=== PATIENT | male | born 1950 | race Caucasian/White ===

== ENCOUNTER → 2017-03-01 | Outpatient (CLI) | payer MEDICARE, BC ==
--- NOTE | 2017-03-01 14:15 | MRI ---
EXAM DESCRIPTION: Lumbar Spine w/o Contrast CLINICAL HISTORY: RADICULOPATHY COMPARISON: None Available. TECHNIQUE: MRI of the lumbar spine is performed according to our usual protocol with axial and sagittal multi sequence imaging. FINDINGS: There is good alignment of the lumbar spine. There is no vertebral pathology. L1:2: the disc is well hydrated. There is no loss of height. There is no bulging. The facets are unremarkable with no significant hypertrophy. There is no stenosis or impingement. L2-3: Mild narrowing and desiccation the discs. Broad annular bulging. Posterior midline annular tear. Early hypertrophic facet arthropathy right greater than left. No stenosis or impingement. L3-4: Moderate desiccation and narrowing of the disc with a broad 2 to 3 mm disc bulge. Annular tear is present posteriorly. There is moderate hypertrophic facet arthropathy. There is no stenosis or impingement. L4-5: Marked narrowing of the discs. Advanced degenerative endplate changes. Broad 2 mm disc osteophyte complex somewhat exaggerated to the left. Mild right moderate left hypertrophic facet arthropathy. No stenosis or impingement. L5-S1: L5 is a transitional vertebral segment and L5-S1 disc is a rudimentary disc level. Facets unremarkable. No stenosis or impingement. IMPRESSION: Multilevel lumbar spondylosis most prominent L3-4 and L4-5 but with no stenosis or impingement at any level. Electronically signed by: Urbano Hi MD 03/01/2017 2:14 PM CDT
== END | disposition home or self-care (01) ==
LOC: MRI 09:03
PROVIDERS: ATTEND Nurse Practitioner Family
DX: M54.16 Radiculopathy, lumbar region (principal)

== ENCOUNTER → 2018-12-06 | Outpatient (CLI) | payer MEDICARE, BC ==
--- NOTE | 2018-12-06 15:20 | US ---
EXAM DESCRIPTION: Aorta: Ultrasound. CLINICAL HISTORY: SCREENING FOR ANEURYSM COMPARISON: MRI lumbar spine 03/01/2017. TECHNIQUE: Transcutaneous scanning: Two-dimensional and Doppler modes. FINDINGS: Abdominal aorta diameter - Proximal: 2.8 x 2.3 cm. Mid: 2.7 x 1.9 cm. Distal: 3.1 x 1.9 cm. Common Iliac diameter - Right: 14 mm. Left: 15 mm. Other: Atherosclerotic changes in the wall of the aorta.. IMPRESSION: 1.3.1 cm distal abdominal aortic aneurysm. Recommend follow-up every 3 years. Reference: J Am Nirmala Radiol 2013;10:789-794. 2. Borderline aneurysm formation also seen in the bilateral proximal common iliac arteries. Electronically signed by: Jim Waters MD 12/06/2018 3:12 PM CDT
== END ==
LOC: US 09:00
PROVIDERS: ATTEND Nurse Practitioner Family
DX: Z13.6 Encounter for screening for cardiovascular disorders (principal); I71.4 Abdominal aortic aneurysm, without rupture

== ENCOUNTER 2019-05-09 11:45 | Observation (INO) | payer MEDICARE, BC ==
[2019-05-09] MEDS ORDERED: ASPIRIN (ENTERIC COATED) 325 MG TAB PO ONE (11:58)
[2019-05-09] MEDS ORDERED: METOCLOPRAMIDE HCL INJ 10 MG/2 ML VIAL IV ONE (11:59)
--- NOTE | 2019-05-09 12:02 | ED.PDOC ---
History of Present Illness - General Time Seen by Provider: 05/09/19 11:46 Source: patient, family Exam Limitations: no limitations - History of Present Illness Initial Comments: 69 M +pmh presents with spouse to ED c/o 2 days of intermittent left sided CP with radiation to left neck exacerbated with exertion. Pt endorses intermittent sweating with the CP and states his CP last for approximately 45 minutes when present. Denies CP at this current moment but did have an episode this morning. Last stress test was >10 years ago but reported as normal per pt and denies h/o cardiac disease. He currently denies SOB, back pain, n/v/d, f/c, headache, dizziness/lightheadedness, and/or acute changes in bowels/urination. Pt is otherwise without further complaints at this time. Allergies/Adverse Reactions: Allergies NO KNOWN ALLERGY Allergy (Verified 05/09/19 12:18) Home Medications: Ambulatory Orders Aspirin [Aspirin Adult Low Dose] 81 mg PO DAILY 05/09/19 Benazepril & Hydrochlorothiazi [Benazepril Hydrochloride/ 20-12.5 mg] 1 tab PO DAILY 05/09/19 Levothyroxine Sodium [Synthroid] 75 mcg PO DAILY 05/09/19 Potassium Chloride [K-Tab] 10 meq PO DAILY 05/09/19 RX: Eszopiclone 2 mg PO BEDTIME 05/09/19 RX: Gabapentin 300 mg PO DAILY 05/09/19 RX: Omeprazole 40 mg PO DAILY 05/09/19 Tamsulosin [Flomax] 0.4 mg PO BID 05/09/19 Review of Systems - Review of Systems Constitutional: States: diaphoresis - intermittent, denies currently. Denies: chills, fever EENTM: Denies: blurred vision, throat pain Respiratory: Denies: cough, orthopnea, short of breath Cardiology: States: chest pain - intermittent, denies currently, radiates to n francy. Denies: edema, palpitations Gastrointestinal/Abdominal: Denies: abdominal pain, diarrhea, nausea, vomiting Genitourinary: Denies: dysuria, frequency Musculoskeletal: States: neck pain - radiation from chest, no posterior neck pain. Denies: back pain Skin: Denies: rash Neurological: Denies: headache, numbness Endocrine: Denies: increased thirst Family Medical History - Family History Father Family History: Unknown Living Status: Unknown Physical Exam - Physical Exam General Appearance: Alert, Comfortable, Well Groomed, Well Hydrated, Well Nourished, Other - no diaphoresis Eyes, Ears, Nose, Throat Exam: PERRL/EOMI Neck: full range of motion, supple Respiratory: chest non-tender, lungs clear, normal breath sounds, no respiratory distress, no accessory muscle use Cardiovascular/Chest: normal peripheral pulses, regular rate, rhythm, no edema, no JVD, no murmur Gastrointestinal/Abdominal: normal bowel sounds, non tender, soft, other - obese Extremity: normal inspection, no pedal edema Neurologic: no motor/sensory deficits, alert, normal mood/affect, oriented x 3 Skin Exam: normal color, warm/dry, other - no rash Progress - Progress Progress: Presents with concern for ACS without signs of active STEMI on EKG. I will evaluate labs, imaging, EKG, provide further pharmacotherapy as indicated along with ASA and reglan for intractable hiccups, and continue to monitor/reassess. H eart score 5. Disposition will depend on labs, imaging, EKG, and pt's overall course in ED; however, admission is expected. 13:06 Rechecked pt with family at bedside. I have discussed my clinical impression in setting of his HPI, PE, labs, EKG, imaging along with all aforementioned findings. Admission has been offered and pt along with family agree with plan. Pt remains without pain at this time and resting comfortably in bed. VSS. NAD. 13:13 I have consulted with Hospitalist Carmina Eden and discussed pt's case in ED along with current findings. She agrees with plan for admission and requests repeat troponin in ED to ensure pt doesn't require transfer. Multiple rechecks of pt throughout ED course. VSS and NAD at all times. - Results/Orders Results/Orders: EKG @ 1149: ED physician read @1151:SR 77 with PVC's and artifact from hiccups. Nl axis with prolonged QRS 110 and incomplete LBBB, WV/WTc wnl, no ST elevations/depressions, nonspecific ST/T-wave changes. No STEMI. No prior EKG's for comparison. Laboratory Tests 05/09/19 05/09/19 05/09/19 12:03 12:03 12:03 WBC 6.2 RBC 5.35 Hgb 15.4 Hct 45.8 MCV 85.7 MCH 28.8 MCHC 33.6 RDW 13.8 Plt Count 201 MPV 9.2 Absolute Neuts (auto) 4.40 Absolute Lymphs (auto) 1.40 Absolute Monos (auto) 0.30 Absolute Eos (auto) 0.10 Absolute Basos (auto) 0.10 Neutrophils % 70.3 Lymphocytes % 21.9 Monocytes % 5.5 Eosinophils % 1.5 Basophils % 0.8 Sodium 137 Potassium 4.0 Chloride 103 Carbon Dioxide 25 Anion Gap 13.0 BUN 19 H Creatinine 1.02 BUN/Creatinine Ratio 18.6 Random Glucose 119 H Serum Osmolality 277.2 Calcium 9.2 Magnesium 2.1 Total Bilirubin 0.9 AST 24 ALT 28 Alkaline Phosphatase 55 Troponin I 0.04 B-Natriuretic Peptide Serum Total Protein 7.3 Albumin 3.8 Globulin 3.5 Albumin/Globulin Ratio 1.1 TSH 0.99 05/09/19 05/09/19 13:28 14:00 WBC RBC Hgb Hct MCV MCH MCHC RDW Plt Count MPV Absolute Neuts (auto) Absolute Lymphs (auto) Absolute Monos (auto) Absolute Eos (auto) Absolute Basos (auto) Neutrophils % Lymphocytes % Monocytes % Eosinophils % Basophils % Sodium Potassium Chloride Carbon Dioxide Anion Gap BUN Creatinine BUN/Creatinine Ratio Random Glucose Serum Osmolality Calcium Magnesium Total Bilirubin AST ALT Alkaline Phosphatase Troponin I 0.04 B-Natriuretic Peptide 25.3 Serum Total Protein Albumin Globulin Albumin/Globulin Ratio TSH EXAM DESCRIPTION: Chest,1 View CLINICAL HISTORY: 69 years Male, CP COMPARISON: None. TECHNIQUE: AP portable chest. FINDINGS: Moderate enlargement of the cardiac silhouette consistent with cardiomegaly and/or pericardial effusion is present with normal vascularity and calcified tortuous aortic arch. Slightly crowded basilar markings in the lower lung zaidi noted without pleural effusions. The mid and upper lung zaidi are clear. Significant volume overload is not apparent. IMPRESSION: Abnormal chest with marked enlargement of the cardiac silhouette consistent with cardiomegaly and/or pericardial effusion, otherwise negative chest. Electronically signed by: Braxton Brown MD 05/09/2019 1:05 PM RN IMCU Departure - Departure Clinical Impression: ACS (acute coronary syndrome), Cardiomegaly Time of Disposition: 13:10 Disposition: Admit Patient Condition: Fair Home Medications: Ambulatory Orders Aspirin [Aspirin Adult Low Dose] 81 mg PO DAILY 05/09/19 Benazepril & Hydrochlorothiazi [Benazepril Hydrochloride/ 20-12.5 mg] 1 tab PO DAILY 05/09/19 Levothyroxine Sodium [Synthroid] 75 mcg PO DAILY 05/09/19 Potassium Chloride [K-Tab] 10 meq PO DAILY 05/09/19 RX: Eszopiclone 2 mg PO BEDTIME 05/09/19 RX: Gabapentin 300 mg PO DAILY 05/09/19 RX: Omeprazole 40 mg PO DAILY 05/09/19 Tamsulosin [Flomax] 0.4 mg PO BID 05/09/19 Decision To Admit - Decistion To Admit Decision to Admit Date: 05/09/19 Decision to Admit Time: 13:09
[2019-05-09] MEDS ORDERED: ASPIRIN TABLET 325 MG TAB ONE (12:33)
[2019-05-09] MEDS ORDERED: ASPIRIN TABLET 325 MG TAB PO ONE (12:37)
--- NOTE | 2019-05-09 13:07 | RAD ---
EXAM DESCRIPTION: Chest,1 View CLINICAL HISTORY: 69 years Male, CP COMPARISON: None. TECHNIQUE: AP portable chest. FINDINGS: Moderate enlargement of the cardiac silhouette consistent with cardiomegaly and/or pericardial effusion is present with normal vascularity and calcified tortuous aortic arch. Slightly crowded basilar markings in the lower lung zaidi noted without pleural effusions. The mid and upper lung zaidi are clear. Significant volume overload is not apparent. IMPRESSION: Abnormal chest with marked enlargement of the cardiac silhouette consistent with cardiomegaly and/or pericardial effusion, otherwise negative chest. Electronically signed by: Braxton Brown MD 05/09/2019 1:05 PM SHANK BONER
[2019-05-09] MEDS ORDERED: NITROGLYCERIN 0.4 MG 25 EA TAB SL PRN (15:51)
[2019-05-09] MEDS ORDERED: ACETAMINOPHEN 325 MG TAB PO PRN (15:51)
[2019-05-09] MEDS ORDERED: MORPHINE SULFATE INJ 10 MG/ML VIAL IV PRN (15:51)
[2019-05-09] MEDS ORDERED: SODIUM CHLORIDE 0.9% (FLUSH) 10 ML SYG IV PRN (15:51)
[2019-05-09] MEDS ORDERED: IV SET AND CAP CHANGE INJ INJ SCH (16:00)
[2019-05-09] MEDS ORDERED: chlorproMAZINE HCL 25 MG TAB PO PRN (17:52)
[2019-05-09] MEDS ORDERED: GABAPENTIN 100 MG CAP PO ONE (18:27)
[2019-05-09] MEDS ORDERED: GABAPENTIN 300 MG CAP ONE (18:28)
[2019-05-09] MEDS: GABAPENTIN 300 MG CAP PO SCH (18:30)
[2019-05-09] MEDS ORDERED: OMEPRAZOLE CAP 20 MG CAP ONE (19:36)
[2019-05-09] MEDS ORDERED: LEVOTHYROXINE SODIUM 0.075 MG TAB ONE (19:36)
[2019-05-09] MEDS: SODIUM CHLORIDE 0.9% (FLUSH) 10 ML SYG IV SCH (20:03)
[2019-05-09] MEDS: TAMSULOSIN 0.4 MG CAP PO SCH (20:03)
[2019-05-09] MEDS ORDERED: ESZOPICLONE 2 MG PO SCH (21:00)
[2019-05-09] MEDS ORDERED: ENOXAPARIN SODIUM 40 MG/0.4 ML SYG SUBCU SCH (21:00)
[2019-05-10] MEDS ORDERED: LEVOTHYROXINE SODIUM 0.075 MG TAB PO SCH (06:30)
[2019-05-10] MEDS ORDERED: OMEPRAZOLE CAP 20 MG CAP PO SCH (06:30)
[2019-05-10 08:33] VITALS: BP 144/85; TEMP 97.5
[2019-05-10] MEDS: TAMSULOSIN 0.4 MG CAP PO SCH (08:38)
[2019-05-10] MEDS: SODIUM CHLORIDE 0.9% (FLUSH) 10 ML SYG IV SCH (08:38)
[2019-05-10] MEDS: GABAPENTIN 300 MG CAP PO SCH (08:38)
[2019-05-10] MEDS ORDERED: [UNRECOGNIZED DRUG - OTHER] PO SCH (09:00)
[2019-05-10] MEDS ORDERED: ASPIRIN TABLET 325 MG TAB PO SCH (09:00)
[2019-05-10] MEDS ORDERED: POTASSIUM CHLORIDE 10 MEQ TAB PO SCH (09:00)
[2019-05-10] MEDS ORDERED: NON-FORMULARY MEDICATION 1 EA MIS (Omeprazole [Omeprazole] 40 MG) PO SCH (09:00)
[2019-05-10] MEDS ORDERED: BACLOFEN 10 MG TAB PO SCH (10:00)
[2019-05-10 11:07] VITALS: O2SAT 96
--- NOTE | 2019-05-10 15:42 | SSS ---
SUPERVISING PHYSICIAN: Marino Abdullahi M.D. DISCHARGE DIAGNOSES: 1. Chest pain. Acute coronary syndrome has been ruled out with negative cardiac enzymes and no changes on EKG as well as no further chest pain. 2. Intractable hiccups. 3. Seasonal allergy exacerbation. 4. Hypertension on medication. 5. Situational stress disorder. 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 He is very worried about her outcome. 6. Hypothyroidism on supplementation. 7. Benign prostatic hypertrophy. HISTORY OF PRESENT ILLNESS: This is a 69 year-old male patient who was seeing his primary care physician, Lashaun Bryant, about a week ago. He has been very stressed out because his is having a lot of medical procedures done right now and [facility] tumor that is on her colon as well as her kidney and has to be resected. He is worried about the outcome. About a week ago he started having some chest tightness that went under his left arm. He also started having bouts of hiccups that would last for several hours and then go away. He returned to see his primary care physician just prior to admission. He continued complaints of chest tightness that went down his left arm and up his left neck. He also complained of the intractable hiccups that had not gone away. In the Emergency Room, his initial vital signs showed temperature 97.9, heart rate 81, blood pressure 132/89, respiratory rate 20, O2 sat 95% on room air. His CBC was within normal limits. Chemistry panel had electrolytes within normal limits. BUN was slightly high at 19. Liver enzymes were within normal limits. Initial troponin was 0.04. Two hour follow troponin was also 0.04. BNP was 25.3. EKG showed no acute changes. Chest x-ray showed abnormal chest with marked enlargement of the cardiac silhouette consistent with cardiomegaly and/or pericardial effusion, otherwise negative chest. He was monitored in the Emergency Room with no changes on his EKG. His chest pain was constant and it radiated to under his arms. In the past week he had had some diaphoresis with it, but it did not worsen with exertion and it did not get better with rest. His main complaint was the hiccups. He was given some Reglan IV ini the Emergency Room and it helped for about 1 hour. I was called for hospital admission. PAST MEDICAL HISTORY: 1. Hypertension. 2. Hypothyroidism. 3. Chronic insomnia. 4. Gastroesophageal reflux disease. 5. Benign prostatic hypertrophy. PAST SURGICAL HISTORY: 1. Appendectomy. 2. Carpal tunnel on both hands. 3. Umbilical hernia repair. OUTPATIENT MEDICATIONS: 1. Aspirin. 2. Benazepril Hydrochlorothiazide. 3. Levothyroxine. 4. Potassium chloride. 5. Lunesta. 6. Gabapentin. 7. Omeprazole. 8. Tamsulosin. ALLERGIES: NO KNOWN DRUG ALLERGIES. SOCIAL HISTORY: He lives in [place]. He is . Denies any tobacco use although he quit smoking about 10 years ago. He also denies ETOH or illicit drug use. REVIEW OF SYSTEMS: GENERAL: Negative for chills, fever or weight changes. HEENT: Positive for sinus symptoms and seasonal allergies that have flared up. Negative for ear pain, vision changes or sore throat. RESPIRATORY: Negative for wheezing, coughing or shortness of breath. CARDIAC: Positive for chest pain that comes and goes that radiates to the neck and under his left arm. Presently he does not have chest pain. Negative for palpitations or tachycardia. GASTROINTESTINAL: Negative for nausea, vomiting or diarrhea. GENITOURINARY: Negative for hematuria, dysuria or polyuria. MUSCULOSKELETAL: Positive for some neck pain but negative for back pain, arthralgias or myalgias. SKIN: Positive for occasional diaphoresis. Negative for lesions or rashes. NEUROLOGIC: Negative for headache, dizziness or seizures. PHYSICAL EXAMINATION: VITAL SIGNS: Temperature 979.5, heart rate 71, blood pressure 144/85, respiratory rate 18, O2 saturation 95% on room air. GENERAL: This is a 69 year-old male patient who is sitting up in his hospital bed. He is in no acute distress. HEENT: Normocephalic, atraumatic. Pupils are equal and reactive. Oropharynx is clear. NECK: Supple without mass. There is no discernible jugular venous distention. RESPIRATORY: Essentially clear to auscultation bilaterally. He presently has the hiccups. CHEST: There is equal rise and fall of the chest with inspiration and expiration. CARDIOVASCULAR: Regular rate and rhythm. GASTROINTESTINAL: Abdomen is soft, nondistended, nontender. Bowel sounds are positive. EXTREMITIES: No cyanosis, clubbing or edema. NEUROLOGIC: Awake, alert and oriented times three. Cranial nerves II-XII are grossly intact as tested. LABORATORY: Labs and films are as per the history of present illness. His followup labs include negative cardiac enzymes with no EKG changes. CBC this morning was within normal limits. Electrolytes are within normal limits. Liver enzymes are within normal limits. Triglycerides are 115, total cholesterol 152, LDL 109.6, HDL is 32. TSH was 0.99. HOSPITAL COURSE: The patient was placed in observation in the hospital. He had no further complaints of chest pain. His main complaint was intractable hiccups. He had received some Reglan in the Emergency Room and it helped for about 1 hour. He was given an additional dose of Gabapentin on the night of his admission. He did say that he fell asleep for a short amount of time but he continues to have the hiccups. He will be discharged today in stable condition and I will give him some medicine for his hiccups. DISCHARGE PLAN: The patient was discharged in stable condition. He is to resume his previous diet and increase his activity as tolerated. He is to followup with Lashaun Bryant in the next 1 to 2 weeks. I have given him some Baclofen as well as Reglan for his hiccups. I have also increased his Gabapentin to assist with the intractable hiccups. Very specific dosing for the 3 of those medications is on his discharge summary. His Gabapentin may be increased from once daily to 3 times daily as needed for his hiccups. The Reglan may take every 6 hours as needed for hiccups and the Baclofen can be started 5 mg 3 times daily. It can be increased by 5 mg at each dosing 3 times daily to a maximum of 25 mg 3 times a day. He did receive 1 dose of IM Thorazine in the hospital and upon discharge he did not have the hiccups. He is to return to the hospital or followup with Lashaun Bryant for any problems or complications. DISCHARGE MEDICATIONS: 1. Potassium chloride. 2. Tamsulosin. 3. Omeprazole. 4. Levothyroxine. 5. Benazepril/hydrochlorothiazide. 6. Lunesta. 7. Aspirin. 8. Reglan. 9. Gabapentin. 10. Baclofen. #[id number] [facility]
== END 2019-05-09 23:59 | disposition short-term general hospital (02) ==
LOC: ER 11:45 → MS 15:02 → UNDODISOB 05-10 11:00
PROVIDERS: ADMIT Nurse Practitioner Acute Care; ATTEND Nurse Practitioner Acute Care
DX: R07.89 Other chest pain (principal); R06.6 Hiccough; J30.2 Other seasonal allergic rhinitis; I11.9 Hypertensive heart disease without heart failure; F43.8 Other reactions to severe stress; E03.9 Hypothyroidism, unspecified; N40.0 Benign prostatic hyperplasia without lower urinary tract symptoms; F51.04 Psychophysiologic insomnia; K21.9 Gastro-esophageal reflux disease without esophagitis; I49.3 Ventricular premature depolarization; I44.7 Left bundle-branch block, unspecified; Z79.82 Long term (current) use of aspirin; Z79.899 Other long term (current) drug therapy; Z87.891 Personal history of nicotine dependence; Z90.49 Acquired absence of other specified parts of digestive tract
CPT/HCPCS: 96374; 96372; J2765; J1650; 82553; 80053; 36415; 85025; 82550; 83735; 84443; 84484 ×3; 83880; 71045; 94760; 99285; 93005 ×2; G0378

== ENCOUNTER 2019-05-10 00:01 | Observation (INO) | payer MEDICARE, BC | END 2019-05-10 11:00 | disposition home or self-care (01) | LOC: MS 00:01 | PROVIDERS: ADMIT Nurse Practitioner Acute Care; ATTEND Nurse Practitioner Acute Care | DX: R07.89 Other chest pain (principal); R06.6 Hiccough; J30.2 Other seasonal allergic rhinitis; I11.9 Hypertensive heart disease without heart failure; F43.8 Other reactions to severe stress; E03.9 Hypothyroidism, unspecified; N40.0 Benign prostatic hyperplasia without lower urinary tract symptoms; F51.04 Psychophysiologic insomnia; K21.9 Gastro-esophageal reflux disease without esophagitis; I49.3 Ventricular premature depolarization; I44.7 Left bundle-branch block, unspecified; Z79.82 Long term (current) use of aspirin; Z79.899 Other long term (current) drug therapy; Z87.891 Personal history of nicotine dependence; Z90.49 Acquired absence of other specified parts of digestive tract | CPT/HCPCS: 96372; J3230; 82553; 80053; 80061; 36415 ×2; 85025; 82550; 84484; 94760; 93005; G0378 ==